=== PATIENT | female | born 1980 | race Two or more races ===

== ENCOUNTER 2023-06-06 04:44 | Emergency (ER) | payer OTHER ==
[~2023-06-06] VITALS: Ht 154.9 cm; Wt 68.2 kg
[2023-06-06 04:46] VITALS: BP 119/76; PULSE 97; RESP 13; TEMP 98.6
[2023-06-06] MEDS ORDERED: PENI500T2 PO (05:53)
[2023-06-06] MEDS ORDERED: IBUP-1554 PO (05:53)
[2023-06-06] MEDS ORDERED: HYDR-4072 PO (05:53)
[2023-06-06] MEDS ORDERED: HYDROCODONE/ACETAMINOPHEN 5-325 MG TABLET PO ONE (06:00)
[2023-06-07] MEDS ORDERED: AMOX1TAB16 PO (17:09)
[2023-06-07] MEDS ORDERED: ACET-2080 PO (17:09)
== END 2023-06-06 06:09 | disposition home or self-care (01) ==
LOC: EMS 04:44
DX: K08.89 Other specified disorders of teeth and supporting structures (principal); F17.210 Nicotine dependence, cigarettes, uncomplicated; Z90.49 Acquired absence of other specified parts of digestive tract; Z98.890 Other specified postprocedural states
CPT/HCPCS: 99283

== ENCOUNTER 2023-06-07 15:58 | Emergency (ER) | payer OTHER ==
[~2023-06-07] VITALS: Ht 154.9 cm; Wt 68.2 kg
[~2023-06-07 15:58] MED LIST: HYDR-4072 PO; IBUP-1554 PO; PENI500T2 PO
[2023-06-07 16:02] VITALS: TEMP 98.2
[2023-06-07 16:55] VITALS: BP 131/78; PULSE 105; RESP 17
[2023-06-07] MEDS ORDERED: ACET-2080 PO (17:09)
[2023-06-07] MEDS ORDERED: AMOX1TAB16 PO (17:09)
== END 2023-06-07 18:17 | disposition home or self-care (01) ==
LOC: EMS 15:59
DX: K04.7 Periapical abscess without sinus (principal); F17.210 Nicotine dependence, cigarettes, uncomplicated; Z90.49 Acquired absence of other specified parts of digestive tract; Z98.890 Other specified postprocedural states
CPT/HCPCS: 99283; Z7502